=== PATIENT | female | born 1970 | race Caucasian/White ===

== ENCOUNTER 2017-04-27 21:45 | Emergency (ER) | payer OTHER ==
[~2017-04-27] VITALS: Ht 165.1 cm; Wt 99.8 kg
--- NOTE | 2017-04-27 22:33 | NUR ---
[facility] SOTO AT BEDSIDE FOR MSE.
--- NOTE | 2017-04-27 22:57 | NUR ---
PT ARRIVES TO ED C/O COUGH ACCOMPANIED BY FEELING OF PRESSURE ON CHEST. DENIES SOB. PT PLACED ON MONITOR AND PULSE OX PER ORDER. EKG COMPLETED. PT RESTING IN A POSITION OF COMFORT. NO ACUTE DISTRESS NOTED AT THIS TIME.
--- NOTE | 2017-04-27 23:02 | NUR ---
[facility] AT BEDSIDE FOR BLOOD DRAW.
[2017-04-27] MEDS ORDERED: BENZONATATE 100 MG CAPSULE PO ONE (23:15)
[2017-04-27] MEDS ORDERED: BENZONATATE 100 MG CAPSULE ONE (23:15)
[2017-04-27 23:18] LABS: CREATININE 0.9 mg/dL (0.6-1.3)
[2017-04-27 23:19] LABS: BASOPHILS # (AUTO) 0.1 K/uL (0.0-8.0); BASOPHILS % (AUTO) 0.9 % (0.0-2.0); EOSINOPHILS # (AUTO) 0.3 K/uL (0.0-0.7); EOSINOPHILS % (AUTO) 2.4 % (0.0-7.0); HEMATOCRIT 41.4 % (31.2-41.9); HEMOGLOBIN 13.9 g/dL (10.9-14.3); LYMPHOCYTES # (AUTO) 2.6 K/uL (20.0-40.0); LYMPHOCYTES % (AUTO) 19.4 % (20.5-51.5); MEAN CORPUSCULAR HEMOGLOBIN 30.2 uug (24.7-32.8); MEAN CORPUSCULAR HGB CONC 34 g/dL (32.3-35.6); MEAN CORPUSCULAR VOLUME 90.3 fL (75.5-95.3); MONOCYTES # (AUTO) 1.1 K/uL (2.0-10.0); MONOCYTES % (AUTO) 8.5 % (0.0-11.0); NEUTROPHILS # (AUTO) 9.1 K/uL (1.8-8.9); NEUTROPHILS % (AUTO) 68.8 % (38.5-71.5); PLATELET COUNT (AUTO) 322 K/uL (179-408); RED BLOOD CELL COUNT(AUTO) 4.59 MIL/uL (3.63-4.92); WHITE BLOOD COUNT (AUTO) 13.3 K/uL (3.8-11.8)
[2017-04-27 23:30] LABS: BILIRUBIN,DIRECT 0.1 mg/dL (0.0-0.2); BILIRUBIN,TOTAL 0.3 mg/dL (0.2-1.0); TOTAL PROTEIN, SERUM 7.2 g/dL (6.4-8.2)
--- NOTE | 2017-04-28 00:04 | NUR ---
PT AMBULATED TO AND FROM BATHROOM W/ STEADY GAIT. DENIES SOB OR DIZZINESS. NO DISTRESS NOTED.
--- NOTE | 2017-04-28 01:02 | NUR ---
PT RESTING ION A POSITION OF COMFORT. NO DISTRESS NOTED. PENDING XRAY RESULTS.
--- NOTE | 2017-04-28 01:37 | NUR ---
Patient discharged to home in stable conditon. Written and verbal after care instructions given. Patient verbalizes understanding of instructions. Pt ambulated from ER e/ steady gait. No distress noted. Pt took all personal belongings.
[2017-04-28 01:38] VITALS: BP 112/73
== END 2017-04-28 01:41 | disposition home or self-care (01) ==
LOC: ER 21:45
DX: J20.8 Acute bronchitis due to other specified organisms (principal); B97.89 Other viral agents as the cause of diseases classified elsewhere; Z88.2 Allergy status to sulfonamides; Z88.5 Allergy status to narcotic agent
CPT/HCPCS: 36415; 70030-TC; 71045; 85025; 85730; 86403; 87070; 93005; A4663